=== PATIENT | male | born 1985 | race Caucasian/White ===

== ENCOUNTER 2022-03-27 02:10 | Outpatient (CLI) | payer OTHER, SELFPAY ==
[2022-03-27 13:06] LABS: Source Nasal/Nares
[2022-03-27 15:04] LABS: COVID-19 PCR Negative (Negative)
== END 2022-03-27 02:11 | disposition home or self-care (01) ==
LOC: LBO 02:13
PROVIDERS: PCP Nurse Practitioner; Visit Provider Otolaryngology
DX: Z20.822 Contact with and (suspected) exposure to COVID-19 (principal); Z01.818 Encounter for other preprocedural examination
CPT/HCPCS: 87635

== ENCOUNTER 2022-03-30 06:50 | Day surgery (SDC) | payer OTHER, SELFPAY ==
[2022-03-30] VITALS (8 sets, daily range): BP systolic 133–188; BP diastolic 79–119; PULSE 71–97; RESP 14–21; TEMP 36.1–36.6; O2SAT 90–98; BMI 47.4
[2022-03-30] MEDS: Lactated Ringers 1,000 ML 80 ML IV (07:40)
--- NOTE | 2022-03-30 08:13 | W.ANESPRE ---
General Info Date of Service Date Performed: 03/30/22 Height: 6 ft 1 in Weight: 163.1 kg Body Mass Index (BMI): 47.4 Surgical Procedure: Operation Date: 03/30/22 08:40 Proposed Procedure Side Surgeon p Adenoidectomy Chavez Stoddard MD Meds Allergies and Home Medications Allergies Allergy/AdvReac Type Severity Reaction Status Date / Time seasonal Allergy Uncoded 03/30/22 07:13 Home Medication Medication Instructions Recorded ibuprofen 200 mg tablet 200 mg PO Q6H PRN 02/13/22 varenicline 1 mg tablet 1 mg PO BID 02/13/22 Current Visit Medications: Current Medications Generic Name Dose Route Start Last Admin Trade Name Freq PRN Reason Stop Dose Admin Cefazolin Sodium/Dextrose 2 gm in 50 mls @ 100 mls/hr 03/30/22 06:00 Ancef Duplex IVPB 03/30/22 18:00 PREOP OZIEL Tranexamic Acid 1,500 mg/ 65 mls @ 390 mls/hr 03/30/22 06:00 Sodium Chloride IVPB 03/30/22 18:00 PREOP OZIEL Ringer's Solution 1,000 mls @ 80 mls/hr 03/30/22 06:00 03/30/22 07:40 IV 04/26/22 05:59 80 mls/hr INFUSION OZIEL Administration IV Miscellaneous Supplies 1 each 03/28/22 06:00 Iv Access IV 04/26/22 23:59 DIRECTED OZIEL Sodium Chloride 0 ml 03/28/22 06:00 Normal Saline Flush 10 Ml Syr IV 04/26/22 23:59 PRN PRN Sodium Chloride 0 ml 03/28/22 06:00 Normal Saline 10 Ml Vial IJ 04/26/22 23:59 DIRECTED PRN Sterile Water 0 ml 03/28/22 06:00 Water,Injection,Sterile 10 Ml Vial IJ 04/26/22 23:59 DIRECTED PRN PFSH Active Problems Active Problems: Problem Status Onset Code Serous otitis media H65.90 Sensorineural hearing loss (SNHL) of both ears H90.3 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 denies Ear congestion Foot pain, right Lipoma Obesity Otitis media Smoker Medical History Comments:: Pt. stated during his dental procedure, he woke up in the middle of it. Surgical History Surgical History (Updated 03/30/22 @ 07:19 by Waleska Cee) History of tonsillectomy 1995 Hx of tooth extraction all teeth Tobacco Smoking/Tobacco Use Status: Current every day Tobacco Type: cigarettes Smoking packs per day: 1 Smoking cigarettes per day: 20.0 Alcohol Alcohol Intake: current Alcohol intake frequency: a few times a month Alcohol type: hard liquor Substance Use Substance use: Never Substance use type: does not use Details: alcohol: wednesday, 3 beer Vital Signs and Lab Results Vital Signs Most Recent Vital Signs in EMR: Most Recent Vital Signs Temp Pulse Resp BP Pulse Ox 36.1 C L 71 16 146/86 H 98 03/30/22 07:17 03/30/22 07:17 03/30/22 07:17 03/30/22 07:17 03/30/22 07:17 Lab Results Blood Type / Crossmatch: No Data to Display Complete Blood Count: No Data to Display Complete Metabolic Panel: No Data to Display Liver Function Panel: No Data to Display Coagulation Panel: No Data to Display Cardiac Panel: No Data to Display Arterial Blood Gas: No Data to Display Venous Blood Gas: No Data to Display Pancreas Panel: No Data to Display Thyroid Panel: No Data to Display Infectious Disease: Coronavirus (COVID-19)(PCR) Negative (Negative) 03/27/22 11:30 03/27/22 Coronavirus 2019 Source Nasal/Nares 03/27/22 11:30 03/27/22 Blood Cultures: No Data to Display Toxicology Panel: No Data to Display Anesthesia Assessment and Plan Anesthesia History Personal History: Awareness Under Anesthesia (Dental procedure) Family History: No Family History of Anesthesia Complications Exercise Tolerance Exercise Tolerance: Metabolic Equivalents>4 Pertinent Negatives Pertinent Negatives: No Symptoms of GERD and No Major Cardiovascular Symptoms or Complaints Cardiac & Pulmonary Exam Cardiac Exam: Normal S1/S2 Heart Sounds Pulmonary Exam: Clear Bilateral Breath Sounds Implantable Cardiac Device Does patient have a Pacemaker or an ICD?: No Airway Exam Known Difficult Airway: No Mallampati Class: 1 Mouth Opening: Normal (> 3cm) Thyromental Distance: Greater than 3 cm Neck Range of Motion: Full ROM Neck Circumference: Thick Teeth Condition: Edentulous ASA Classification ASA Score: ASA 3 Emergency Case?: No NPO Status NPO Status: NPO Clears >2 hours, Solids >8 hours Anesthesia Plan Resuscitation Status: Full Code Anesthesia Technique: General Anesthesia Airway Planned: Endotracheal Tube Monitors Used: Standard Monitors
[2022-03-30] MEDS: ceFAZolin 2 GM/50 ML BAG IVPB (08:40)
--- NOTE | 2022-03-30 09:19 | W.PM.DSUDISC ---
Discharge Plan Disposition Patient Disposition: HOME Condition: Good Discharge Details Attending Provider: Chavez Stoddard Primary Care Provider: Tavia Hyman Home Meds and New Rx's Prescriptions: No Action ibuprofen 200 mg tablet 200 mg PO Q6H [id number] varenicline 1 mg tablet 1 mg PO BID 0RF Label Comments: pt .hasnt started yet Discharge Instructions Stand Alone Forms: [facility] Referrals: Chavez Stoddard MD [ [facility] STAFF PHYSICIAN] - (1 month. Please call office for appt. prior to patients departure) Diet:: As Tolerated Discharge Orders Discharge Orders: Discharge Order (Routine); Ordered 03/30/22 Ordered By: Chavez Stoddard
--- NOTE | 2022-03-30 09:24 | W.PM.OP ---
Operative Note Operative Note DATE OF PROCEDURE: 03/30/22 PRE-OP DIAGNOSIS: adenoidal hypertrophy POST-OP DIAGNOSIS: same PROCEDURE: Adenoidectomy SURGEON: Chavez Stoddard ANESTHESIA TYPE: General LMA/ETT Refer to Anesthesia Record ESTIMATED BLOOD LOSS: 5 PATHOLOGY: none sent COMPLICATIONS: None Patient was transported to: PACU Patient's condition: stable Indications: Patient with above problems. This is causing chronic eustachian tube dysfunction. Options were explained to the family regarding further management. He elected to undergo the above procedure. Consent was reviewed. H&P was updated Findings: 3+ adenoids, significant soft tissue redundancy within the nasopharynx and oropharynx. Posterior choana widely patent at the end of the case. Palate intact to inspection and palpation. Procedure Description: After obtaining an adequate level of general endotracheal anesthesia the patient was positioned in a supine position and prepped and draped in appropriate fashion. A Juice Pipo mouthgag was carefully introduced into the oral cavity and opened to reveal the soft and hard palate which were examined revealing no evidence of an occult cleft palate. Catheter was passed through the right nares grasped the back of the throat and brought forward to retract the soft palate. A curved mirror was then used to visualize the adenoids, and then because of the redundancy of the soft tissues, the decision was made to perform cautery adenoidectomy. Using electrocautery suction tip catheter set on 35 W coagulation, the adenoidal tissue was obliterated. Care was taken to debulk this from around the eustachian tube nayla. Following this, the catheter was removed and the Juice-Pipo mouthgag was relaxed and removed. The patient was then awakened and extubated by anesthesia and taken to recovery room in stable condition. I was present throughout the entire case.
--- NOTE | 2022-03-30 10:19 | W.ANESPOSTOP ---
Postoperative Evaluation Date, Time and Location Date Performed: 03/30/22 Time Performed: 10:20 Patient Location: Day Surgery Unit Vital Signs Most Recent Imported Vital Signs: Most Recent Vital Signs Temp Pulse Resp BP Pulse Ox 36.5 C 79 16 133/79 97 03/30/22 09:50 03/30/22 09:50 03/30/22 09:50 03/30/22 09:50 03/30/22 09:50 Pain Score Most Recent Pain Score: Most Recent Pain Score Pain Level 3 03/30/22 09:50 Assessment Mental Status: Awake (Alert & Oriented to Patient Baseline) Airway and Respiratory Function: Patent airway with normal (patient baseline) respiratory exam Cardiovascular Function: Hemodynamically Stable Hydration Status: Adequately Hydrated Nausea & Vomiting: No Nausea or Vomiting Pain: Pt. Denies Any Pain Peripheral Nerve Block: Patient did not receive a nerve block
== END 2022-03-30 10:29 | disposition home or self-care (01) ==
PROVIDERS: PCP Nurse Practitioner; Visit Provider Otolaryngology
PROC: (CPT 42831; principal; 2022-03-30 08:30)
DX: J35.2 Hypertrophy of adenoids (principal); H69.83 Other specified disorders of Eustachian tube, bilateral; J45.909 Unspecified asthma, uncomplicated; F17.210 Nicotine dependence, cigarettes, uncomplicated
CPT/HCPCS: 42831; J0690; J1100; J2405; J2704